=== PATIENT | female | born 1965 | race Caucasian/White ===

== ENCOUNTER → 2021-11-23 | Outpatient (CLI) | payer BC, OTHER ==
[~2021-11-23] MED LIST: CYMBALTA20 MG PO; DICLOFENAC SODI75 MG PO; MEGA BIOTIN10000 MCG PO; MELATONIN10 M2 PO; OMEPRAZOLE20 M1 PO; VITAMIN B12 PO; VITAMIN C1000 MG PO; VITAMIN D21250 MCG PO; WOMEN'S DAILY1 EAC1 PO
[2021-11-23 12:10] LABS: HEMOGLOBIN 13.4 gm/dl (12.3-15.3); RED BLOOD COUNT 4.56 M/UL (4.00-5.10); WHITE BLOOD COUNT 7.5 K/UL (4.5-11.0)
== END ==
LOC: OPSV2 10:00
PROVIDERS: Obstetrics & Gynecology
DX: Z01.818 Encounter for other preprocedural examination (principal); N81.9 Female genital prolapse, unspecified
CPT/HCPCS: 71046; 81001; 85025; 93005

== ENCOUNTER → 2021-11-30 | Day surgery (SDC) | payer BC, OTHER ==
[~2021-11-30] MED LIST changes: +DOCUSATE SODIU250 MG PO; +HYDROCODONE-AC1 EACH PO; +IBUPROFEN600 MG PO
== END | disposition home or self-care (01) ==
LOC: OR 05:19
DX: N81.6 Rectocele (principal); N39.46 Mixed incontinence; K46.9 Unspecified abdominal hernia without obstruction or gangrene; K66.0 Peritoneal adhesions (postprocedural) (postinfection); I10 Essential (primary) hypertension; Z20.822 Contact with and (suspected) exposure to COVID-19; Z90.710 Acquired absence of both cervix and uterus
CPT/HCPCS: C1769; J0690; J1100; J1885; J2001; J2250; J2370; J2405; J2704; J2710; J3010; J7050; J7120